=== PATIENT | female | born 1985 | race African-American/Black ===

== ENCOUNTER 2020-12-24 04:55 | Inpatient (IN) ==
[2020-12-24] MEDS ORDERED: FAMOTIDINE 20 MG/2 ML VIAL IV ONE (05:19)
[2020-12-24] MEDS ORDERED: CITRIC ACID/SODIUM CITRATE 30 ML UDCUP PO ONE (05:19)
[2020-12-24] MEDS ORDERED: LACTATED RINGERS 1,000 ML IV SCH ×2 (05:30→09:30)
[2020-12-24 06:06] LABS: Basophils % 0.3 % (0.0-0.8); Eosinophils # 0.1 10*3/uL (0.0-0.87); Eosinophils % 0.8 % (0.00-10.9); Immature Granulocytes % 0.4 %; Immature Granulocytes Absolute 0.03 #; Lymphocytes # 2.4 10*3/uL (1.4-4.0); Lymphocytes % 32.7 % (21.3-54.2); Mean Corpuscular HGB Conc 32.4 GM/DL (32-36); Mean Corpuscular Volume 91.2 FL (87-102); Mean Platelet Volume 9.4 FL (9.6-12.0); Monocytes % 10.7 % (1.7-12.7); Neutrophils % 55.1 % (38.7-73.9); Platelet Count 296 T/CUMM (130-400); Red Blood Count 3.73 MC/CUMM (3.8-5.5); Red Cell Distribution Width 13.1 % (9.3-17.3); White Blood Count 7.3 T/CUMM (4-12)
[2020-12-24 06:30] LABS: Alanine Aminotransferase 11 U/L (13-56); Albumin 2.6 G/DL (3.4-5.0); Alkaline Phosphatase 155 U/L (45-117); Aspartate Amino Transferase 9 U/L (0-37); Bilirubin,Total < 0.39 MG/DL (0.20-1.00); Blood Urea Nitrogen 6 MG/DL (7-18); Calcium 8.6 MG/DL (8.5-10.1); Carbon Dioxide 20 MMOL/L (21-32); Estimated Glom Filtration Rate 228 ML/MIN; Glucose 101 MG/DL (74-106); Osmolality,Calculated 270.8 MOS/KG (273-304); Potassium 3.6 MMOL/L (3.5-5.1); Sodium 137 MMOL/L (136-145); Total Protein 6.9 G/DL (6.4-8.2)
[2020-12-24] MEDS ORDERED: ONDANSETRON 4 MG/2 ML VIAL ONE (07:04)
[2020-12-24] MEDS ORDERED: BUPIVACAINE SPINAL 0.75% 2 ML AMP SPINAL ONE (07:04)
[2020-12-24] MEDS ORDERED: KETOROLAC 30 MG/1 ML VIAL ONE (07:04)
[2020-12-24] MEDS ORDERED: OXYTOCIN/LR 20 UNIT/1,000 ML BAG IV ONE ×2 (07:06→09:03)
[2020-12-24] MEDS ORDERED: TRANEXAMIC ACID 1,000 MG/10 ML VIAL ONE (07:06)
[2020-12-24] MEDS ORDERED: miSOPROStoL 200 MCG TABLET ONE (07:06)
[2020-12-24] MEDS ORDERED: METHYLERGONOVINE 0.2 MG/1 ML AMP ONE (07:07)
[2020-12-24] MEDS ORDERED: CARBOPROST TROMETHAMINE 250 MCG/ML AMP IM ONE (07:07)
[2020-12-24] MEDS ORDERED: fentaNYL 100 MCG/2 ML VIAL ONE ×2 (08:12→08:42)
[2020-12-24] MEDS ORDERED: propofoL 200 MG/20 ML VIAL IV ONE ×3 (08:18→08:56)
[2020-12-24 08:25] LABS: Cord Arterial Blood HCO3 19.8 MMOL/L; Cord Venous Blood HCO3 23.7 MMOL/L; Cord Venous Blood PCO2 45.3 MMHG; Cord Venous Blood PO2 36.8 MMHG
[2020-12-24 08:28] LABS: Bacteria,Urine Occasional /HPF (Few); Bilirubin,Urine Negative (Negative); Blood, Urine Small mg/dL (Negative); Glucose,Urine (UA) Negative (Negative); Ketones,Urine 80 mg/dL (Negative); Mucus,Urine Moderate /LPF (Occasional); Nitrite,Urine Negative (Negative); Protein,Urine Negative; RBC,Urine 2 /HPF (0-4); Squamous Epithelial Cell,Urine Occasional /HPF (0-10); Urine Appearance CLEAR (Clear); Urine Color Yellow (Yellow); Urine Specific Gravity 1.025 (1.001-1.035); Urine Urobilinogen < 2.0 EU/DL (0.2-1.0)
[2020-12-24] MEDS ORDERED: LABETALOL 20 MG/4 ML SYRINGE IV ONE (08:55)
[2020-12-24] MEDS ORDERED: SIMETHICONE CHEW 80 MG TABLET PO PRN (09:03)
[2020-12-24] MEDS ORDERED: ACETAMINOPHEN 325 MG TABLET PO PRN (09:03)
[2020-12-24] MEDS ORDERED: ONDANSETRON 4 MG/2 ML VIAL IV PRN (09:03)
[2020-12-24] MEDS ORDERED: RHO(D) IMMUNE GLOBULIN 300 MCG SYRINGE IM ONE (09:03)
[2020-12-24] MEDS ORDERED: LACTATED RINGERS 1,000 ML IV ONE (09:05)
[2020-12-24] MEDS ORDERED: HYDROmorphone 2 MG/1 ML VIAL IV PRN (09:16)
[2020-12-24] MEDS ORDERED: diphenhydrAMINE 50 MG/1 ML VIAL IV PRN (09:16)
[2020-12-24] MEDS ORDERED: hydrOXYzine HCL 25 MG/1 ML VIAL IM PRN (09:16)
[2020-12-24] MEDS: ACETAMINOPHEN 500 MG TABLET PO SCH ×2 (13:38→15:01)
[2020-12-24] MEDS: KETOROLAC 30 MG/1 ML VIAL IV SCH ×2 (15:01→21:36)
[2020-12-24] MEDS: DOCUSATE SODIUM 100 MG CAPSULE PO SCH (21:33)
[2020-12-25] MEDS: KETOROLAC 30 MG/1 ML VIAL IV SCH (04:11)
[2020-12-25 04:56] LABS: Basophils % 0.2 % (0.0-0.8); Eosinophils # 0.1 10*3/uL (0.0-0.87); Eosinophils % 0.9 % (0.00-10.9); Hematocrit 27.3 VOL% (35.7-47.0); Immature Granulocytes % 0.4 %; Immature Granulocytes Absolute 0.03 #; Lymphocytes # 1.9 10*3/uL (1.4-4.0); Lymphocytes % 23.6 % (21.3-54.2); Mean Platelet Volume 9.8 FL (9.6-12.0); Monocytes % 9.5 % (1.7-12.7); Neutrophils % 65.4 % (38.7-73.9); Platelet Count 246 T/CUMM (130-400); Red Cell Distribution Width 13.1 % (9.3-17.3); White Blood Count 8.1 T/CUMM (4-12)
[2020-12-25] MEDS: ACETAMINOPHEN 500 MG TABLET PO SCH ×2 (06:46→06:47)
[2020-12-25] MEDS: ENOXAPARIN 40 MG/0.4 ML SYRINGE SUBCUT SCH (09:33)
[2020-12-25] MEDS: DOCUSATE SODIUM 100 MG CAPSULE PO SCH ×2 (09:33→21:45)
[2020-12-25] MEDS: MAGNESIUM HYDROXIDE SUSP 30 ML UDCUP PO PRN ×2 (09:35→21:45)
[2020-12-25] MEDS: MULTIVITAMIN (PRENATAL) TABLET PO SCH (09:35)
[2020-12-25] MEDS: IBUPROFEN 800 MG TABLET PO PRN ×2 (09:35→21:48)
[2020-12-25] MEDS: FERROUS SULFATE 325 MG TABLET PO SCH ×2 (15:47→21:45)
[2020-12-25] MEDS: oxyCODONE/ACETAMINOPHEN 5-325 MG TABLET PO PRN ×2 (15:47→21:48)
[2020-12-26] MEDS: IBUPROFEN 800 MG TABLET PO PRN (08:33)
[2020-12-26] MEDS: DOCUSATE SODIUM 100 MG CAPSULE PO SCH (08:33)
[2020-12-26] MEDS: ENOXAPARIN 40 MG/0.4 ML SYRINGE SUBCUT SCH (08:33)
[2020-12-26] MEDS: oxyCODONE/ACETAMINOPHEN 5-325 MG TABLET PO PRN (08:33)
[2020-12-26 08:34] VITALS: BP 142/79
[2020-12-26] MEDS: MAGNESIUM HYDROXIDE SUSP 30 ML UDCUP PO PRN (08:34)
[2020-12-26] MEDS: FERROUS SULFATE 325 MG TABLET PO SCH (08:34)
[2020-12-26] MEDS: MULTIVITAMIN (PRENATAL) TABLET PO SCH (08:34)
[2020-12-26] MEDS ORDERED: DIPH/TET/ACEL PERT BOOSTER VACCINE 0.5 ML VIAL IM ONE (11:17)
== END 2020-12-26 14:05 | disposition home or self-care (01) | DRG 540 ==
LOC: N.LDOUT 04:55 → N.LD 04:58 → N.OB 12:38
PROVIDERS: ADMIT Obstetrics & Gynecology; ATTEND Obstetrics & Gynecology
PROC: LDCSECT (ICD-10-PCS; 2020-12-24 07:30)